=== PATIENT | female | born 1980 | race Caucasian/White ===

== ENCOUNTER 2025-05-25 05:37 | Inpatient (IN) | payer SELFPAY ==
[2025-05-25] VITALS (8 sets, daily range): BP systolic 143–173; BP diastolic 56–108; PULSE 77–92; RESP 18–20; TEMP 36.3–36.9; O2SAT 94–98; BMI 30.4
--- NOTE | 2025-05-25 05:48 | EDRME_ITS ---
Rapid Medical Screening Exam [facility] Arrival date/time: 05/25/25 05:37 45F with history of cholecystectomy and daily alcohol intake presents to ED with 1 day of epigastric pain and non-bloody diarrhea. Patient states this doesn't feel like withdrawal as she had a drink yesterday. Chief Complaint: Abdominal Pain Vital signs: Vital Signs Temperature 98.4 F 05/25/25 05:41 Pulse Rate 90 05/25/25 05:41 Respiratory Rate 20 05/25/25 05:41 Blood Pressure 173/108 H 05/25/25 05:41 Pulse Oximetry (%) 98 05/25/25 05:41 Oxygen Delivery Method Room Air 05/25/25 05:41
[2025-05-25] MEDS: SODIUM CHLORIDE 0.9% 1000 ML 1,000 ML 999 ML IV (06:15)
[2025-05-25] MEDS: ONDANSETRON INJ 2 MG/ML INJ 2 ML 4 MG IV (06:15)
[2025-05-25 06:34] LABS: Basophils # (Auto) 0.1 Thou/mm3 (0.0-0.2); Basophils % (Auto) 1 % (0-2.5); Eosinophils # (Auto) 0.2 Thou/mm3 (0.0-0.5); Eosinophils % (Auto) 2 % (0-10); Hematocrit 44.5 % (36.0-46.0); Hemoglobin 15.3 g/dL (12.0-16.0); Immature Granulocytes Auto 0.03 Thou/mm3 (0.00-0.00); Lymphocytes # (Auto) 1.7 Thou/mm3 (1.0-4.8); Lymphocytes % (Auto) 20 % (10-50); Mean Corpuscular HGB Conc 34.4 g/dl (31.0-37.0); Mean Corpuscular Hemoglobin 34.8 pg (25.0-35.0); Mean Corpuscular Volume 101 fL (80-100); Monocytes # (Auto) 0.6 Thou/mm3 (0.0-0.8); Monocytes % (Auto) 7 % (0-12); Neutrophils # (Auto) 5.9 Thou/mm3 (1.8-7.7); Neutrophils % (Auto) 70 % (37-80); Nucleated Red Blood Cell # 0.00 Thou/mm3 (0.00-0.00); Nucleated Red Blood Cell % 0 /100 WBC (0); Platelet Count 230 Thou/mm3 (140-440); RDW Standard Deviation 49.7 fL (36.4-46.3); Red Blood Count 4.40 Miln/mm3 (4.00-5.20); White Blood Count 8.4 Thou/mm3 (3.6-11.0)
--- NOTE | 2025-05-25 06:35 | PD.EDABDPN ---
ED Abdominal Pain RME/HPI General Chief Complaint: Abdominal Pain Stated complaint: ABD PAIN Time seen by provider: 05/25/25 05:54 Arrival date/time: 05/25/25 05:37 Limitations: no limitations RME / HPI RME / HPI narrative: 05/25/25 05:37 45F with history of cholecystectomy and daily alcohol intake presents to ED with 1 day of epigastric pain and non-bloody diarrhea. Patient states this doesn't feel like withdrawal as she had a drink yesterday. DR. WASHBURN MAIN ED EVALUATION: 45 year old female with past medical history significant for cholecystectomy and alcohol abuse presents to the Emergency Department with complaint of epigastric pain with radiation to the back since 1 AM. Associated symptoms include nausea and vomiting x10 episodes. Last menstrual period was May 08. No fevers or chills. No diarrhea. No other symptoms reported at this time. Related Data Home Medications ?Medication ?Instructions ?Recorded ?Confirmed gabapentin 300 mg capsule 300 mg PO BID 02/14/18 02/14/18 hydrocodone 7.5 mg-acetaminophen 1 tab PO BID 02/14/18 02/14/18 325 mg tablet (Donnellson) loratadine 10 mg capsule 10 mg PO QDAY 02/14/18 02/14/18 meloxicam 7.5 mg tablet 7.5 mg PO QDAY 02/14/18 02/14/18 methocarbamol 750 mg tablet 750 mg PO TID 02/14/18 02/14/18 zolpidem 10 mg tablet (Ambien) 10 mg PO HS PRN 02/14/18 02/14/18 Previous Rx's ?Medication ?Instructions ?Recorded promethazine-DM 6.25 mg-15 mg/5 mL 5 ml PO Q6H PRN cough #150 mL 12/09/18 oral syrup cyclobenzaprine 10 mg tablet 10 mg PO Q8H PRN muscle spasm #20 07/19/23 tabs Allergies Allergy/AdvReac Type Severity Reaction Status Date / Time clonazepam AdvReac Severe vomiting Verified 05/25/25 05:47 dizziness Review of Systems Review of Systems Systems Reviewed: All systems reviewed, normal except as documented Past Medical History Past Medical History MUSCULOSKELETAL: Positive Musculoskeletal Disorders, Arthritis and Degenerative Disk Disease Surgical History SURGICAL: Positive Section Social History SMOKING STATUS: Current every day smoker SUBSTANCE USE: does not use ALCOHOL: Current ED Exam General Limitations: Present no limitations General appearance: Present alert and in no apparent distress Head Head exam: Present atraumatic, normocephalic and normal inspection Eye Eye exam: Present normal appearance, PERRL and EOMI ENT ENT exam: Present normal exam, normal oropharynx and mucous membranes moist Neck Neck exam: Present normal inspection, full ROM and trachea midline Chest Chest inspection: Present normal inspection and symmetric chest wall rise Respiratory Respiratory exam: Present normal lung sounds bilaterally Cardiovascular Cardiovascular exam: Present regular rate, normal rhythm and normal heart sounds Abdominal Exam Abdominal exam: Present tenderness (epigastric tenderness) and normal bowel sounds; Absent rebound Extremities Exam Extremities exam: Present normal inspection and full ROM Back Exam Back exam: Present normal inspection and full ROM Neurological Exam Neurological exam: Present alert, oriented X3 and CN II-XII intact Psychiatric Psychiatric exam: Present normal affect and normal mood Skin Skin exam: Present warm, dry, intact and normal color Course Quality Measures none Orders Category Date Time Status CT Screening NOW Care 05/25/25 06:36 Active Insert IV NOW Care 05/25/25 05:[address] abdomen pelvis w con Stat Exams 05/25/25 06:36 Completed Alcohol, Blood Medical Stat Lab 05/25/25 06:20 Completed CBC Stat Lab 05/25/25 06:20 Completed CMP [Comprehensive Metabolic Panel] Stat Lab 05/25/25 06:20 Completed Drug Screen,Urine Stat Lab 05/25/25 11:32 Completed HCG Qualitative,Urine Stat Lab 05/25/25 11:32 Completed HCG,Qualitative Serum Stat Lab 05/25/25 06:20 Completed Lipase Stat Lab 05/25/25 06:20 Completed Triglycerides Stat Lab 05/25/25 13:06 Ordered Urinalysis, C/S if Indicated Stat Lab 05/25/25 11:32 Completed Morphine Inj Med 05/25/25 06:35 Active 4 mg IVP Q2H PRN Ondansetron Inj [Zofran Inj] Med 05/25/25 05:47 Discontinued 4 mg IV X1 ONE Pantoprazole Inj [Protonix Inj] Med 05/25/25 05:47 Discontinued 40 mg IVP X1 ONE Ringers Lactated 1000 ml [Lactated Ringers] 1,000 ml Med 05/25/25 06:37 Discontinued IV 1,000 mls/hr Sodium Chloride 0.9% 1000 ml [Ns] 1,000 ml Med 05/25/25 05:47 Discontinued IV 999 mls/hr Vital Signs Vital signs: Vital Signs Temperature 98.4 F 05/25/25 05:41 Pulse Rate 90 05/25/25 05:41 Respiratory Rate 20 05/25/25 05:41 Blood Pressure 173/108 H 05/25/25 05:41 Pulse Oximetry (%) 98 05/25/25 05:41 Oxygen Delivery Method Room Air 05/25/25 05:41 Abdominal Pain MDM MDM Narrative MDM Narrative:: I, Melina Arambula, nereida scribing for and in the presence of Dr. Bowling. Patient here for abdominal pain, epigastric. Likely pancreatitis, could also be gastritis or cholelithiasis. Plan to give pain medications, IV fluids, and order abdomen/pelvis CT scan. Will admit for acute pancreatitis and alcohol abuse Patient data External records reviewed:: [facility] previous records Clinical information provided by:: patient and spouse Social determinants that could affect healthcare access:: alcohol use Patient has the following chronic illnesses:: cholecystectomy and alcohol abuse How is presenting disease/condition affected by chronic disease/condition?: exacerbated by Evaluation data The following diagnostics were reviewed and interpreted by me:: lab results and radiology exam(s) Lab and/or radiology exams considered but not ordered:: none Interpretation Summary: Procedure(s): CT abdomen pelvis w con Accession Number(s): [id number] cc: Ami Bowling MD; Ubaldo Sweet MD; Daniel Salas MD~ Examination: CT abdomen with intravenous contrast CT pelvis with intravenous contrast 2-D coronal reconstructions 2-D sagittal reconstructions Date and time of exam:May 25, 2025 0909 hours Comparison March 02, 2013 INDICATIONS: Epigastric pain nausea vomiting beginning this morning. CTDI: vol (mGy) 12.7 DLP: (mGycm) 787 Technique: Multiple axial sections of the abdomen and pelvis have been obtained. 64 slice high-resolution scanner used. 3 mm axial sections have been obtained, post intravenous injection 60 cc [id number] 2-D sagittal, coronal reconstructions obtained. Low dose protocols were performed. One or more of the following dose reduction techniques were used; automated exposure control, adjustment of the mA and/or KV according to patient size, use of iterative reconstruction technique. Findings: Stable 4 mm pulmonary nodule right middle lobe No interval liver or splenic lesions Absent gallbladder Common hepatic duct 18 mm Suspicious for edema around the head of the pancreas No hydronephrosis No bowel obstruction Tiny fat-containing umbilical hernia Normal appendix No diverticulitis Anteverted uterus No bladder mass Moderate osteopenia IMPRESSION: Enlarged common hepatic duct Suspicious for pancreatitis Consider MRCP follow-up Dictated By: Daniel Salas MD Medications / Prescriptions Medications or Prescriptions considered but not ordered:: none Medication administrations:: Medication Administration History Morphine Sulfate (Morphine Sulf Inj 10 Mg/Ml Vial) 4 mg IVP Q2H PRN PRN Reason: AGITATION (MODERATE) Stop: 05/30/25 06:34 Last Admin: 05/25/25 11:51 Dose: 4 mg Documented By: Admin: 05/25/25 07:02 Dose: 4 mg Documented By: DONALD Discontinued Medications Sodium Chloride (Ns) 1,000 mls @ 999 mls/hr IV .Q1H1M ONE Stop: 05/25/25 06:47 Last Infusion: 05/25/25 07:43 Dose: Infused Documented By: Admin: 05/25/25 06:15 Dose: 999 mls/hr Documented By: DONALD Lactated Ringer's (Lactated Ringers) 1,000 mls @ 1,000 mls/hr IV .Q1H ONE Stop: 05/25/25 07:36 Last Infusion: 05/25/25 08:03 Dose: Infused Documented By: Admin: 05/25/25 07:03 Dose: 1,000 mls/hr Documented By: DONALD Ondansetron HCl (Ondansetron Inj 2 Mg/Ml Inj 2 Ml) 4 mg IV X1 ONE; Protocol Stop: 05/25/25 05:48 Last Admin: 05/25/25 06:15 Dose: 4 mg Documented By: DONALD Pantoprazole Sodium (Pantoprazole Inj 40 Mg Vial) 40 mg IVP X1 ONE Stop: 05/25/25 05:48 Last Admin: 05/25/25 06:15 Dose: 40 mg Documented By: DONALD see above Consultations Consultation(s) initiated? (list below): Yes Consultation #1 (Physician, Specialty, Details): Discussed test HPI, PMHx, lab, radiology results and/or management with resident working with the hospitalist. Will admit for further evaluation and management. Accepts patient for admission. Time: 13:08 Diagnosis Differential diagnosis abdominal pain: abdominal pain, gastroenteritis, pancreatitis and other (gastritis) Most likely diagnosis given after review of the tests above:: Pancreatitis and alcohol abuse Admission Indicated Admission indicated?: indicated Admission Request Was there a request for admission?: Yes Admission Attestation Admission request attestation: Discussed case with [] from Hospitalist service regarding admission. Discussed patients ED course, exam findings, labs, and radiology results. The Hospitalist [agrees,declines] to accept the patient for admission. Disposition Plan Disposition Plan: Admit Discharge Plan Prescriptions/Referrals Prescriptions/Med Rec: No Action meloxicam 7.5 mg tablet 7.5 mg PO QDAY methocarbamol 750 mg tablet 750 mg PO TID hydrocodone-acetaminophen [Donnellson] 7.5-325 mg tablet 1 tab PO BID gabapentin 300 mg capsule 300 mg PO BID zolpidem [Ambien] 10 mg tablet 10 mg PO HS PRN loratadine 10 mg capsule 10 mg PO QDAY promethazine-DM 6.25-15 mg/5 mL syrup 5 ml PO Q6H PRN (Reason: cough) Qty: 150 0RF cyclobenzaprine 10 mg tablet 10 mg PO Q8H PRN (Reason: muscle spasm) Qty: 20 0RF Referrals: Ubaldo Sweet MD [Primary Care Provider] - In 1 week Patient/Caregiver Discharge Instructions Print Language: Yemeni
[2025-05-25 06:57] LABS: Alanine Aminotransferase 35 U/L (10-49); Albumin, Serum 4.1 gm/dL (3.5-5.0); Albumin/Globulin Ratio 1.5 (1.2-2.2); Alcohol, Blood Medical 17.8 mg/dL (0-10.0); Alkaline Phosphatase 80 U/L (46-116); Anion Gap 8 (7-16); Aspartate Amino Transferase 39 U/L (0-34); BUN/Creatinine Ratio 7 Ratio (12-20); Bilirubin,Total 0.5 mg/dL (0.3-1.2); Blood Urea Nitrogen 5 mg/dL (9-23); Calcium 8.7 mg/dL (8.3-10.6); Calcium (Corrected) 8.7 mg/dL (8.5-10.1); Carbon Dioxide 26.4 mMol/L (20.0-31.0); Chloride 107 mMol/L (98-107); Creatinine (Component) 0.7 mg/dL (0.6-1.3); Globulin 2.7 gm/dL (2.3-3.5); Glucose 115 mg/dL (74-106); Lipase 272 U/L (12-53); Osmolality,Calculated 279 (275-295); Potassium 3.4 mMol/L (3.4-5.1); Sodium 141 mMol/L (136-145); Total Protein 6.8 gm/dL (5.7-8.2); eGFR > 60 See Note
[2025-05-25] MEDS: MORPHINE SULF INJ 10 MG/ML VIAL 4 MG IVP ×2 (07:02→11:51)
[2025-05-25] MEDS: RINGERS LACTATED 1000 ML 1,000 ML IV (07:03)
[2025-05-25 07:59] LABS: HCG,Qualitative Serum Negative
[2025-05-25 11:46] LABS: Collection Type, Urine Clean Catch
[2025-05-25 12:00] LABS: HCG Qualitative,Urine Negative
[2025-05-25 12:03] LABS: Bacteria,Urine Rare; Bilirubin,Urine Negative (Negative); Blood,Urine Negative (Negative); Clarity,Urine Clear (Clear/Hazy); Color,Urine Lt-Yellow (Lt Yel-Yel); Culture Indicated,Urine Not Indicated; Glucose, Urine Negative (Negative); Ketones,Urine Negative (Negative); Leukocyte Esterase,Urine Negative (Negative); Nitrite,Urine Negative (Negative); PH,Urine 8.0 (5.0-7.0); Protein,Urine Negative (Neg - Trace); RBC,Urine 6 /hpf (0-3); Specific Gravity,Urine 1.040 (1.001-1.035); Squamous Epithelial Cell,Urine 3 /hpf (0-5); Urobilinogen,Urine 6.0 mg/dL (0.0-1.0); WBC,Urine 1 /hpf (0-5)
[2025-05-25 12:24] LABS: Amphetamine/Methamp Scrn,U Negative (Negative); Barbiturate Screen,Urine Negative (Negative); Benzodiazepines Screen,Urine Negative (Negative); Benzoylecgonine Screen, Ur Negative (Negative); Fentanyl Screen,Urine Negative (Negative); Opiate Screen,Urine Positive (Negative); THC Screen,Urine Negative (Negative)
[2025-05-25 14:12] LABS: Triglycerides 263 mg/dL (30-150)
--- NOTE | 2025-05-25 15:05 | ESHP_ITS ---
<Statement entered by Rosaura Isabel MD - 05/25/25 17:30> I have reviewed the note and agree with the resident's assessment & plan with exceptions as below. I have personally reviewed labs, imaging, home meds/prior records, examined the patient, formulated and discussed management plan with the IM team. #Pancreatitis #Intractable nausea and vomiting #Alcohol use disorder Triglycerides 270 Patient does not seem to be withdrawing at this time CT imaging showed suspicion for pancreatic edema Lipase ~260 Pancreatitis likely related to patient's drinking history There is suspicion that patient may have esophageal varices, however patient has not coughed up or throwing up blood Plan: ? IV fluids, LR at 150 cc/hour ? N.p.o. ? Antiemetics ? Pain control with IV morphine ? Holding on adding CIWA at this time #Hypertriglyceridemia Triglycerides 270 Plan: ? Cardiac stratification ? Outpatient management Rosaura Isabel, PGY-2 Internal Medicine Documentation for date of: 05/25/25 HPI History of Present Illness History of present illness: Angeles Ojeda is a 45-year-old female with past medical history of alcohol abuse, cholecystectomy, osteoarthritis of hips knees and wrists, degenerative disc disease who presented to the ED on 05/25/2025 with worsening epigastric pain since midnight. Pain was described as sharp, rated 3/10, and radiating to the back. Patient admits to nausea, and states has vomited 10 times. Denies hematemesis, hematochezia, diarrhea, fevers, chest pain. patient admits to similar symptoms for 2 days during past week, but even more episodes during the previous months. After antiemetics were given in the ED, patient said that she was having dry heaves. Patient admits to loss of appetite and states that over last 12 months has lost 56 pounds. Allergies: Clonazepam PMH: Alcohol abuse, osteoarthritis, degenerative disc disease PSH: cholecystectomy surgery to remove bunions in both feet FH: Father from liver cancer. Mother hypoglycemia. Diabetes prominent in mother's side of her family SH: Patient smokes daily, currently 1 PPD. Patient states has a smoking since 15. Drinks a pint of whiskey daily. 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 Reason for admission: Patient comes in with epigastric pain radiating to the back, lipase elevated 272, and radiology suspicious for inflammatory changes around pancreas. Patient is admitted for further workup and in-hospital treatment of the most likely diagnosis acute pancreatitis. Exam Vital Signs Temp Pulse Resp BP Pulse Ox O2 Del Method 97.7 F 80 18 145/83 H 98 Room Air 05/25/25 14:24 05/25/25 14:24 05/25/25 14:24 05/25/25 14:24 05/25/25 14:24 05/25/25 14:24 Narrative Exam General: Alert and oriented x3, No apparent distress. Skin: Intact, Warm, no rashes. HEENT: Normocephalic, Atraumatic. Normal neck range of motion, Supple. Trachea midline. Respiratory: Lungs are clear to auscultation, Breath sounds are equal bilaterally with equal chest expansion. Cardiovascular: RRR, normal S1, S2, No murmurs. Distal pulses 2+ Musculoskeletal: No swelling, moving all 4 extremities with FROM Abdomen: No erythema, bruising, or lesions. A transverse scarring from C- section surgery in hypogastric area. Abdomen is soft, exquisitely tender to palpation. Deep ventilation exacerbates the abdominal pain. Bowel sounds are diminished. Neurologic: Alert, Oriented, No focal deficits. Moving all 4 extremities spontaneously Psych: Thoughts linear and responses appropriate. Results: Labs 05/26/25 05:10 05/26/25 05:10 Labs: Short CBC 05/25/25 Range/Units 06:20 WBC 8.4 (3.6-11.0) Thou/mm3 Hgb 15.3 (12.0-16.0) g/dL Hct 44.5 (36.0-46.0) % Plt Count 230 (140-440) Thou/mm3 BMP 05/25/25 06:20 Sodium 141 Potassium 3.4 Chloride 107 Carbon Dioxide 26.4 BUN 5 L Creatinine 0.7 Glucose 115 H Calcium 8.7 Liver Function 05/25/25 Range/Units 06:20 Total Bilirubin 0.5 (0.3-1.2) mg/dL AST 39 H (0-34) U/L ALT 35 (10-49) U/L Alkaline Phosphatase 80 (46-116) U/L Albumin 4.1 (3.5-5.0) gm/dL Urine 05/25/25 Range/Units 11:32 Urine Color Lt-Yellow (Lt Yel-Yel) Urine Clarity Clear (Clear/Hazy) Urine pH 8.0 H (5.0-7.0) Ur Specific [place] 1.040 H (1.001-1.035) Urine Protein Negative (Neg - Trace) Urine Glucose (UA) Negative (Negative) Quality Measures Quality Measures none Medications Home Medications and Allergies Home Medications ?Medication ?Instructions ?Recorded ?Confirmed ?Type ibuprofen 800 mg tablet (IBU) 800 mg PO DAILY PRN pain 05/25/25 05/25/25 History omeprazole 20 mg capsule,delayed 20 mg PO QDAY PRN abd ominal pain 05/25/25 05/25/25 History release Allergies Allergy/AdvReac Type Severity Reaction Status Date / Time clonazepam AdvReac Severe vomiting Verified 05/25/25 05:47 dizziness Visit Medications Morphine Sulfate (Morphine Sulf Inj 10 Mg/Ml Vial) 4 mg IVP Q2H PRN PRN Reason: AGITATION (MODERATE) Stop: 05/30/25 06:34 Last Admin: 05/25/25 11:51 Dose: 4 mg Discontinued Medications Sodium Chloride (Ns) 1,000 mls @ 999 mls/hr IV .Q1H1M ONE Stop: 05/25/25 06:47 Last Infusion: 05/25/25 07:43 Dose: Infused Lactated Ringer's (Lactated Ringers) 1,000 mls @ 1,000 mls/hr IV .Q1H ONE Stop: 05/25/25 07:36 Last Infusion: 05/25/25 08:03 Dose: Infused Ondansetron HCl (Ondansetron Inj 2 Mg/Ml Inj 2 Ml) 4 mg IV X1 ONE; Protocol Stop: 05/25/25 05:48 Last Admin: 05/25/25 06:15 Dose: 4 mg Pantoprazole Sodium (Pantoprazole Inj 40 Mg Vial) 40 mg IVP X1 ONE Stop: 05/25/25 05:48 Last Admin: 05/25/25 06:15 Dose: 40 mg Assessment & Plan Plan In summary, Shekhar Ojeda is a 45-year-old female with past medical history of alcohol abuse disorder, osteoarthritis, degenerative disc disease, and cholecystectomy who presented to the ED with signs and symptoms concerning for acute pancreatitis. #Acute alcohol-induced pancreatitis Ddx gastritis, duodenitis, GI perforation Lipase 272, triglycerides 263 CTAP: Enlarged common hepatic duct, suspicion for pancreatitis Plan: ?Follow-up MRCP ? LR 150 mL/h ? N.p.o. (nausea); antiemetics on board ? Analgesics IV morphine 4 mg as needed injection ? CBC, CMP daily AM draw ?Trend lipase ?TSH, A1c #Alcohol withdrawal (possibility, to watch out for) Patient drinks a pint of 40% alcohol daily Plan: ?Obtain daily labs for magnesium and phosphate, replete as necessary ? Vitamin supplementation (thiamine, pyridoxine) ? Consider CIWA protocol Health maintenance: Diet: N.p.o. GI prophylaxis: Protonix CODE STATUS routine Case was discussed with attending physician, Dr. Guaman, and senior resident Nael. Gee Foley, DO PGY I Attending Provider Attestation/Addendum I have examined the patient, reviewed labs and imaging findings, discussed the case with the resident(s), and reviewed entered orders. I agree with the plan of care as outlined in this note, with these additional summaries/recommendations: After examination of the patient and review of the clinical data, I feel that this patient needs admission to the hospital for further treatment and evaluation. Patient is a 45-year-old female with relatively no past medical history except for insomnia and some alcohol use who presents to [facility] emergency department on 05/25/2025 with chief complaint of abdominal pain. In the emergency room lipase found to be [address] abdomen and pelvis showed likely edema around pancreatic head with minimal enlarged common hepatic duct. Patient meets 3 out of 3 diagnostic criteria for acute pancreatitis. Etiology likely secondary to alcohol. No evidence of gallstones at this time. N.p.o., IV fluids, pain management, and monitor for fever. Patient does endorse daily alcohol use although has never had withdrawal symptoms. CIWA as needed. Patient updated on the plan and in agreement. All questions answered to satisfaction. Please see residents note for additional details and management. Dr. Rowena MD
[2025-05-25] MEDS: ONDANSETRON INJ 2 MG/ML INJ 2 ML 4 MG IVP (15:59)
[2025-05-25] MEDS: RINGERS LACTATED 1000 ML 1,000 ML 150 ML IV (16:00)
[2025-05-25] MEDS: MORPHINE SULF INJ 10 MG/ML VIAL 2 MG IVP ×2 (17:11→22:10)
--- NOTE | 2025-05-25 17:48 | EKG_ITS ---
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
--- NOTE | 2025-05-25 17:48 | XR_ITS ---
Examination: AP chest single view Technique one AP portable upright chest single view Date and time: May 25, 2025 1808 hours INDICATIONS: Chest pain shortness of breath today. FINDINGS: Normal heart size. The lungs are clear. The osseous structures are intact. IMPRESSION: No active disease.
[2025-05-25] MEDS: MORPHINE SULF INJ 10 MG/ML VIAL IVP (18:01)
--- NOTE | 2025-05-25 18:13 | ECHO_ITS ---
Transthoracic Echo Report Ht (in): 69 Wt (lb): 206 Exam Location: Echo Lab Status: Inpatient Chain Builder: Nereyda Fournier Indications: Procedure Performed: BP: 163 / 56 HR: 80 Technical Quality: Technically difficult study MEASUREMENTS (Male / Female) Normal Values 2D ECHO LV Diastolic Diameter PLAX 4.4 cm 4.2 - 5.9 / 3.9 - 5.3 cm LV Systolic Diameter PLAX 3.0 cm IVS Diastolic Thickness 1.1 cm 0.6 - 1.0 / 0.6 - 0.9 cm LVPW Diastolic Thickness 1.2 cm 0.6 - 1.0 / 0.6 - 0.9 cm LV Relative Wall Thickness 0.5 LVOT Diameter 2.0 cm Aortic Root Diameter 3.1 cm LA Systolic Diameter LX 3.5 cm 3.0 - 4.0 / 2.7 - 3.8 cm LV Ejection Fraction MOD BP 55.8 % >= 55 % LV Cardiac Index MOD BP 1738.4 cm?/min?m? LV Ejection Fraction MOD 4C 54.5 % LV Cardiac Index MOD 4C 1530.8 cm?/min?m? LV Ejection Fraction 4C AL 55.7 % LV Cardiac Index 4C AL 1609.5 cm?/min?m? LV Ejection Fraction MOD 2C 57.5 % LV Cardiac Index MOD 2C 1964.5 cm?/min?m? LV Ejection Fraction 2C AL 57.4 % LV Cardiac Index 2C AL 2055.4 cm?/min?m? LA Volume Index 20.8 cm?/m? 16 - 28 cm?/m? M-MODE Aortic Root Diameter MM 2.5 cm LA Systolic Diameter MM 4.2 cm LA Ao Ratio MM 1.7 AV Cusp Separation MM 2.3 cm DOPPLER AV Peak Velocity 139.0 cm/s AV Peak Gradient 7.7 mmHg AV Mean Gradient 3.0 mmHg AV Velocity Time Integral 29.4 cm LVOT Peak Velocity 101.0 cm/s LVOT Peak Gradient 4.1 mmHg LVOT Velocity Time Integral 25.6 cm LVOT Cardiac Index 2981.0 cm?/min?m? AV Area Cont Eq vti 2.7 cm? AV Area Cont Eq pk 2.3 cm? MV Area PHT 4.9 cm? MR Peak Velocity 406.0 cm/s MR Peak Gradient 65.9 mmHg Mitral E Point Velocity 89.7 cm/s Mitral A Point Velocity 90.2 cm/s Mitral E to A Ratio 1.0 LV E' Lateral Velocity 12.9 cm/s Mitral E to LV E' Lateral Ratio 7.0 LV E' Septal Velocity 10.0 cm/s Mitral E to LV E' Septal Ratio 9.0 TR Peak Velocity 278.5 cm/s TR Peak Gradient 31.0 mmHg PV Peak Velocity 106.0 cm/s PV Peak Gradient 4.5 mmHg FINDINGS Left Ventricle Normal left ventricular size and systolic function with no obvious regional wall motion abnormalities. Mild LVH. Normal left ventricular diastolic filling pattern for age. The ejection fraction is visually estimated at 55- 60%. Right Ventricle The right ventricular size is mildy increased with normal systolic function. The estimated right ventricular systolic pressure, 40 mmHg. RAP 5. Left Atrium The left atrium is normal by two-dimensional, color flow and Doppler imaging with no structural abnormalities, no thrombus formation present. Right Atrium The right atrium is normal by two-dimensional imaging, color flow and Doppler imaging with no structural abnormalities, no thrombus formation present. Atrial Septum The interatrial septum appears normal with no evidence of a shunt. Aorta The aorta is normal by two-dimensional, color flow and Doppler interrogation. Mitral Valve The mitral valve is normal by two-dimensional, color flow and Doppler interrogation. Trace mitral regurgitation. Aortic Valve The aortic valve is trileaflet and normal by two-dimensional, color flow and Doppler interrogation. There is no significant aortic valve regurgitation. Tricuspid Valve The tricuspid valve is normal by two-dimensional, color flow and Doppler interrogation. There is mild tricuspid valve regurgitation. Pulmonic Valve The pulmonic valve is not well visualized. There is no significant pulmonic valve regurgitation. Vessels The pulmonary artery appears normal. The inferior vena cava pulmonary and hepatic veins appear normal. Pericardium The pericardium is normal by two-dimensional imaging. There is no significant pericardial effusion. CONCLUSIONS Indication: Chest pain Normal LV size and function. Mild LVH. Estimated EF of 55 to 60%. Normal diastolic function. Normal RV size and function. Mildly elevated RVSP 35 to 40 mmHg. Trace MR. Mild TR. no pericardial effusion Evans Casarez (Electronically Signed) Final Date: 26 May 2025 09:00
[2025-05-25] MEDS: POTASSIUM CHL 10 mEq IVPB 10 MEQ/100 ML BAG 100 MEQ IV ×4 (18:14→21:43)
[2025-05-25 18:47] LABS: Alanine Aminotransferase 158 U/L (10-49); Albumin, Serum 4.1 gm/dL (3.5-5.0); Albumin/Globulin Ratio 1.5 (1.2-2.2); Alkaline Phosphatase 143 U/L (46-116); Anion Gap 8 (7-16); Aspartate Amino Transferase 392 U/L (0-34); BUN/Creatinine Ratio 8 Ratio (12-20); Bilirubin,Total 1.4 mg/dL (0.3-1.2); Blood Urea Nitrogen < 5 mg/dL (9-23); Calcium 8.7 mg/dL (8.3-10.6); Calcium (Corrected) 8.7 mg/dL (8.5-10.1); Carbon Dioxide 27.5 mMol/L (20.0-31.0); Chloride 105 mMol/L (98-107); Creatinine (Component) 0.6 mg/dL (0.6-1.3); Estimated Creatinine Clearance 144.3 mL/min (>60); Globulin 2.7 gm/dL (2.3-3.5); Glucose 103 mg/dL (74-106); Magnesium 1.4 mg/dL (1.6-2.6); Osmolality,Calculated 276 (275-295); Potassium 4.2 mMol/L (3.4-5.1); Sodium 140 mMol/L (136-145); Total Protein 6.8 gm/dL (5.7-8.2); Troponin I < 0.020 ng/mL (0.0-0.045); eGFR > 60 See Note
--- NOTE | 2025-05-25 19:35 | EVENTNT_ITS ---
Documentation for date of: 05/25/25 Event Note Event Note: [id number]: Chest Pain Rapid response called for chest pain. Patient reported right sided chest pain that was non-radiating, 7/10, made worse with deep inspiration, and reproducible with deep palpation. Patient able to protect airway, respiratory rate normal, and circulation 3+. Vitals during rapid: BP 165/96, HR 85, RR 18, spO2 96 % RA Action taken: EKG, Troponin, BMP, CBC, Cxr. Medication given Morphine 2 mg IV Q4HR PRN and Morphine mg IV X 1 - The patient's plan was discussed with attending Dr. Jerzy Chisholm MD PGY2 Internal Medicine
[2025-05-25 19:38] LABS: Basophils # (Auto) 0.0 Thou/mm3 (0.0-0.2); Basophils % (Auto) 0 % (0-2.5); Eosinophils # (Auto) 0.1 Thou/mm3 (0.0-0.5); Eosinophils % (Auto) 1 % (0-10); Hematocrit 45.8 % (36.0-46.0); Hemoglobin 15.6 g/dL (12.0-16.0); Immature Granulocytes Auto 0.02 Thou/mm3 (0.00-0.00); Lymphocytes # (Auto) 1.0 Thou/mm3 (1.0-4.8); Lymphocytes % (Auto) 10 % (10-50); Mean Corpuscular HGB Conc 34.1 g/dl (31.0-37.0); Mean Corpuscular Hemoglobin 34.9 pg (25.0-35.0); Mean Corpuscular Volume 103 fL (80-100); Monocytes # (Auto) 0.5 Thou/mm3 (0.0-0.8); Monocytes % (Auto) 6 % (0-12); Neutrophils # (Auto) 7.8 Thou/mm3 (1.8-7.7); Neutrophils % (Auto) 83 % (37-80); Nucleated Red Blood Cell # 0.00 Thou/mm3 (0.00-0.00); Nucleated Red Blood Cell % 0 /100 WBC (0); Platelet Count 235 Thou/mm3 (140-440); RDW Standard Deviation 51.5 fL (36.4-46.3); Red Blood Count 4.47 Miln/mm3 (4.00-5.20); White Blood Count 9.5 Thou/mm3 (3.6-11.0)
[2025-05-25] MEDS: Magnesium Sulfate 4 GM Ivpb 4 GM/50 ML BAG IV (23:03)
[2025-05-25] MEDS: RINGERS LACTATED 1000 ML 1,000 ML 125 ML IV (23:03)
[2025-05-26] VITALS (9 sets, daily range): BP systolic 126–178; BP diastolic 94–109; PULSE 76–119; RESP 16–20; TEMP 36.1–36.8; O2SAT 79–98
[2025-05-26] MEDS: MORPHINE SULF INJ 10 MG/ML VIAL 2 MG IVP ×4 (02:48→17:37)
[2025-05-26] MEDS: ONDANSETRON INJ 2 MG/ML INJ 2 ML 4 MG IVP ×2 (05:15→11:25)
[2025-05-26] MEDS: LORazepam 2 MG/ML VIAL 1 MG IV (05:35)
[2025-05-26 06:29] LABS: Basophils # (Auto) 0.0 Thou/mm3 (0.0-0.2); Basophils % (Auto) 0 % (0-2.5); Eosinophils # (Auto) 0.0 Thou/mm3 (0.0-0.5); Eosinophils % (Auto) 0 % (0-10); Hematocrit 45.9 % (36.0-46.0); Hemoglobin 16.4 g/dL (12.0-16.0); Immature Granulocytes Auto 0.02 Thou/mm3 (0.00-0.00); Lymphocytes # (Auto) 1.0 Thou/mm3 (1.0-4.8); Lymphocytes % (Auto) 9 % (10-50); Mean Corpuscular HGB Conc 35.7 g/dl (31.0-37.0); Mean Corpuscular Hemoglobin 34.8 pg (25.0-35.0); Mean Corpuscular Volume 98 fL (80-100); Monocytes # (Auto) 0.6 Thou/mm3 (0.0-0.8); Monocytes % (Auto) 6 % (0-12); Neutrophils # (Auto) 8.5 Thou/mm3 (1.8-7.7); Neutrophils % (Auto) 84 % (37-80); Nucleated Red Blood Cell # 0.00 Thou/mm3 (0.00-0.00); Nucleated Red Blood Cell % 0 /100 WBC (0); Platelet Count 161 Thou/mm3 (140-440); RDW Standard Deviation 48.9 fL (36.4-46.3); Red Blood Count 4.71 Miln/mm3 (4.00-5.20); White Blood Count 10.1 Thou/mm3 (3.6-11.0)
[2025-05-26 07:07] LABS: Alanine Aminotransferase 129 U/L (10-49); Albumin, Serum 3.9 gm/dL (3.5-5.0); Albumin/Globulin Ratio 1.4 (1.2-2.2); Alkaline Phosphatase 137 U/L (46-116); Anion Gap 9 (7-16); Aspartate Amino Transferase 176 U/L (0-34); BUN/Creatinine Ratio 10 Ratio (12-20); Bilirubin,Total 1.4 mg/dL (0.3-1.2); Blood Urea Nitrogen < 5 mg/dL (9-23); Calcium 8.2 mg/dL (8.3-10.6); Calcium (Corrected) 8.3 mg/dL (8.5-10.1); Carbon Dioxide 22.0 mMol/L (20.0-31.0); Cardiac Risk Estimate 2.3 RATIO (3.7-5.6); Chloride 104 mMol/L (98-107); Cholesterol 153 mg/dL (132-200); Creatinine (Component) 0.5 mg/dL (0.6-1.3); Estimated Creatinine Clearance 173.2 mL/min (>60); Globulin 2.7 gm/dL (2.3-3.5); Glucose 108 mg/dL (74-106); Glucose Estimated Average 94 mg/dL (80-131); HDL Cholesterol 66 mg/dL (40-60); Hemoglobin A1C 4.9 % Hgb (4.8-6.0); LDL Cholesterol,Calculated 74 mg/dL (0-130); Magnesium 2.4 mg/dL (1.6-2.6); Osmolality,Calculated 268 (275-295); Phosphorous 2.0 mg/dL (2.4-5.1); Potassium 3.6 mMol/L (3.4-5.1); Sodium 135 mMol/L (136-145); Thyroid Stimulating Hormone 0.72 uIU/mL (0.55-4.78); Total Protein 6.6 gm/dL (5.7-8.2); Triglycerides 64 mg/dL (30-150); eGFR > 60 See Note
[2025-05-26] MEDS: RINGERS LACTATED 1000 ML 1,000 ML 75 ML IV (11:21)
[2025-05-26] MEDS: RINGERS LACTATED 1000 ML 1,000 ML 150 ML IV ×2 (15:14→19:58)
[2025-05-26] MEDS: POT PHOS 15 mMol in NS 250 ML 15 MMOL/250 ML BAG 62.5 MMOL IV (15:37)
--- NOTE | 2025-05-26 15:43 | PC.SS ---
Per rounding, pt is unable to tolerate food. Pt is being seen for Pancreatitis, is now on NPO. No d/c date at this time.
--- NOTE | 2025-05-26 17:00 | ESPR_ITS ---
Documentation for date of: 05/26/25 Subjective Subjective Interval history: Patient had nausea, and vomited earlier in the morning. Abdominal pain is improving, 6 out of 10 today. The chest pain is still present and could not be differentiated from abdominal pain. It gets worse with movement. Patient has not had a bowel movement or passed gas. Denies dysuria, urinary frequency, or urgency. Patient was experiencing chest pain and SOB last night and rapid response was called. His EKG, troponins, and morning echocardiogram were unremarkable. Exam Vital Signs Temp Pulse Resp BP Pulse Ox O2 Del Method 97.1 F 106 H 18 143/97 H 94 L Room Air 05/26/25 16:00 05/26/25 16:00 05/26/25 16:00 05/26/25 16:00 05/26/25 16:05/26/25 16:00 Narrative Exam General: Alert and oriented x3, No apparent distress. Skin: Intact, Warm, no rashes. HEENT: Normocephalic, Atraumatic. Normal neck range of motion, Supple. Trachea midline. Respiratory: Lungs are clear to auscultation, Breath sounds are equal bilaterally with equal chest expansion. Cardiovascular: RRR, normal S1, S2, No murmurs. Distal pulses 2+ Musculoskeletal: No swelling, moving all 4 extremities with FROM Abdomen: No erythema, bruising, or lesions. A transverse scarring from C- section surgery in hypogastric area. Abdomen is soft, exquisitely tender to palpation. Deep ventilation exacerbates the abdominal pain. Bowel sounds are diminished. Neurologic: Alert, Oriented, No focal deficits. Moving all 4 extremities spontaneously Psych: Thoughts linear and responses appropriate. Objective Labs 05/27/25 05:05 05/27/25 05:05 Labs: Laboratory Results - last 24 hr 05/25/25 05/25/25 05/26/25 17:54 18:09 05:10 WBC 9.5 10.1 RBC 4.47 4.71 Hgb 15.6 16.4 H Hct 45.8 45.9 MCV 103 H 98 MCH 34.9 34.8 MCHC 34.1 35.7 RDW Std Deviation 51.5 H 48.9 H Plt Count 235 161 D Neut % (Auto) 83 H 84 H Lymph % (Auto) 10 9 L [place] % (Auto) 6 6 Eos % (Auto) 1 0 Baso % (Auto) 0 0 Neut # (Auto) 7.8 H 8.5 H Lymph # (Auto) 1.0 1.0 [place] # (Auto) 0.5 0.6 Eos # (Auto) 0.1 0.0 Baso # (Auto) 0.0 0.0 Immature Gran # (Auto) 0.02 H 0.02 H Absolute Nucleated RBC 0.00 0.00 Immature Gran % 0 0 Nucleated RBC % 0 0 Sodium 140 135 L Potassium 4.2 D 3.6 D Chloride 105 104 Carbon Dioxide 27.5 22.0 Anion Gap 8 9 BUN < 5 L < 5 L Creatinine 0.6 0.5 L Estim Creat Clear Calc 144.3 173.2 eGFR > 60 > 60 BUN/Creatinine Ratio 8 L 10 L Glucose [address] Glu mg/dL 94 Hemoglobin A1c 4.9 Calculated Osmolality 276 268 L Calcium 8.7 8.2 L Corrected Calcium 8.7 8.3 L Phosphorus 2.0 L Magnesium 1.4 L 2.4 Total Bilirubin 1.4 H D 1.4 H AST 392 H 176 H ALT 158 H 129 H Alkaline Phosphatase 143 H D 137 H Troponin I < 0.020 Total Protein 6.8 6.6 Albumin 4.1 3.9 Globulin 2.7 2.7 Albumin/Globulin Ratio 1.5 1.4 Triglycerides 64 Cholesterol 153 LDL Cholesterol, Calc 74 HDL Cholesterol 66 H Cholesterol/HDL Ratio 2.3 L TSH 0.72 Quality Measures Quality Measures none Assessment & Plan Assessment Current Active Medications: Generic Name Dose Route Start Last Admin Trade Name Mikyq PRN Reason Stop Dose Admin Folic Acid 1 mg 05/26/25 09:00 05/26/25 09:00 Folic Acid 1 Mg Tablet PO 05/31/25 08:59 Not Given BID LATRICE Lactated Ringer's 1,000 mls @ 150 mls/hr 05/26/25 13:33 05/26/25 15:14 Lactated Ringers IV 06/25/25 13:32 150 mls/hr .[id number] LATRICE Administration Potassium Phosphate 15 mmol in 250 mls @ 62.5 mls/hr 05/26/25 13:45 05/26/25 15:37 Pot Phos 15 Mmol In Ns 250 Ml IV 05/26/25 17:44 62.5 mls/hr X1 ONE Administration Calcium Chloride 10 ml/ Sodium 110 mls @ 110 mls/hr 05/26/25 17:45 Chloride IV 05/26/25 18:44 .Q1H ONE Lorazepam 0.5 mg 05/26/25 07:57 Lorazepam 2 Mg/Ml Vial IV 05/31/25 07:56 Q2HR PRN CIWA SCORE 8-13 Lorazepam 1 mg 05/26/25 07:57 Lorazepam 2 Mg/Ml Vial IV 05/31/25 07:56 Q2HR PRN CIWA SCORE 14-19 Lorazepam 2 mg 05/26/25 07:57 Lorazepam 2 Mg/Ml Vial IV 05/31/25 07:56 Q2HR PRN CIWA SCORE 20-25 Lorazepam 2 mg 05/26/25 07:57 Lorazepam 2 Mg/Ml Vial IVP X1 PRN Breakthrough Agitation Morphine Sulfate 2 mg 05/25/25 17:50 05/26/25 12:39 Morphine Sulf Inj 10 Mg/Ml Vial IVP 05/30/25 17:49 2 mg Q4HR PRN Administration PAIN SCALE 7-10 (Severe Ondansetron HCl 4 mg 05/25/25 15:30 05/26/25 11:25 Ondansetron Inj 2 Mg/Ml Inj 2 Ml IVP 06/24/25 15:29 4 mg Q6HR PRN Administration NAUSEA OR VOMITING Protocol Pantoprazole Sodium 40 mg 05/26/25 09:00 05/26/25 08:11 Pantoprazole Inj 40 Mg Vial IVP 06/25/25 08:59 40 mg QDAY LATRICE Administration Thiamine HCl 100 mg 05/26/25 09:00 05/26/25 09:00 Thiamine 100 Mg Tablet PO 05/31/25 08:59 Not Given BID LATRICE Plan Plan In summary, Shekhar Ojeda is a 45-year-old female with past medical history of alcohol abuse disorder, osteoarthritis, degenerative disc disease, and cholecystectomy who presented to the ED with signs and symptoms concerning for acute pancreatitis. #Acute alcohol-induced pancreatitis Ddx gallstone pancreatitis, hypertriglyceridemia, scorpion bite. Lipase 272, triglycerides 263 CTAP: Enlarged common hepatic duct, suspicion for pancreatitis HgA1c 4.9; TSH .72 Plan: ?Follow-up MRCP ? LR 75 mL/h ? clear liquid diet (advanced); antiemetics on board ? Analgesics IV morphine 4 mg as needed injection ? CBC, CMP daily AM draw ?Trend lipase #Alcohol withdrawal (possibility, to watch out for) Patient drinks a pint of 40% alcohol daily Plan: ?Obtain daily labs for magnesium and phosphate, replete as necessary ? Vitamin supplementation (thiamine, pyridoxine) ? Consider CIWA protocol #Transaminitis On admission AST 392, ALT 158, alkaline phosphatase 143 AST: ALT >2 indicative of alcohol induced liver injury LFT's downtrending Plan: trend LFT Health maintenance: Diet: N.p.o. GI prophylaxis: Protonix CODE STATUS routine Case was discussed with attending physician, Dr. Guaman, and senior resident Chalo. Gee Foley, DO PGY I Attending Provider Attestation/Addendum I have examined the patient, reviewed labs and imaging findings, discussed the case with the resident(s), and reviewed entered orders. I agree with the plan of care as outlined in this note, with these additional summaries/recommendations: Patient seen at bedside. No acute overnight events. Patient reports some improvement in her abdominal pain. Patient was started on clear liquid diet but did not tolerate and patient made n.p.o. again. Continue pain management and IV fluids for acute pancreatitis. Continue CIWA for alcohol withdrawal although mild at this time. Patient intermittently endorsing chest pain at times although appears noncardiac in origin. Patient updated on plan and in agreement. All questions answered to satisfaction. Please see residents note for additional details and management. Dr. Rowena MD
[2025-05-26] MEDS: Calcium Chloride 10% Inj 10 ML in SODIUM CHLORIDE 0.9% 100 ML 110 ML IV (20:00)
[2025-05-26] MEDS: FOLIC ACID 1 MG TABLET PO (20:25)
[2025-05-26] MEDS: THIAMINE 100 MG TABLET PO (20:25)
[2025-05-26] MEDS: LORazepam 2 MG/ML VIAL 0.5 MG IV (20:26)
[2025-05-27] VITALS (9 sets, daily range): BP systolic 136–145; BP diastolic 66–97; PULSE 80–122; RESP 16–20; TEMP 36.1–36.7; O2SAT 93–97
[2025-05-27] MEDS: MORPHINE SULF INJ 10 MG/ML VIAL 2 MG IVP ×5 (00:46→20:45)
[2025-05-27] MEDS: RINGERS LACTATED 1000 ML 1,000 ML 150 ML IV (02:01)
[2025-05-27 06:31] LABS: Basophils # (Auto) 0.0 Thou/mm3 (0.0-0.2); Basophils % (Auto) 0 % (0-2.5); Eosinophils # (Auto) 0.1 Thou/mm3 (0.0-0.5); Eosinophils % (Auto) 1 % (0-10); Hematocrit 43.4 % (36.0-46.0); Hemoglobin 15.0 g/dL (12.0-16.0); Immature Granulocytes Auto 0.04 Thou/mm3 (0.00-0.00); Lymphocytes # (Auto) 1.2 Thou/mm3 (1.0-4.8); Lymphocytes % (Auto) 11 % (10-50); Mean Corpuscular HGB Conc 34.6 g/dl (31.0-37.0); Mean Corpuscular Hemoglobin 34.4 pg (25.0-35.0); Mean Corpuscular Volume 100 fL (80-100); Monocytes # (Auto) 0.8 Thou/mm3 (0.0-0.8); Monocytes % (Auto) 8 % (0-12); Neutrophils # (Auto) 8.5 Thou/mm3 (1.8-7.7); Neutrophils % (Auto) 80 % (37-80); Nucleated Red Blood Cell # 0.00 Thou/mm3 (0.00-0.00); Nucleated Red Blood Cell % 0 /100 WBC (0); Platelet Count 166 Thou/mm3 (140-440); RDW Standard Deviation 51.4 fL (36.4-46.3); Red Blood Count 4.36 Miln/mm3 (4.00-5.20); White Blood Count 10.6 Thou/mm3 (3.6-11.0)
[2025-05-27 06:54] LABS: Alanine Aminotransferase 67 U/L (10-49); Albumin, Serum 3.4 gm/dL (3.5-5.0); Albumin/Globulin Ratio 1.4 (1.2-2.2); Alkaline Phosphatase 113 U/L (46-116); Anion Gap 9 (7-16); Aspartate Amino Transferase 47 U/L (0-34); BUN/Creatinine Ratio 8 Ratio (12-20); Bilirubin,Total 1.3 mg/dL (0.3-1.2); Blood Urea Nitrogen < 5 mg/dL (9-23); Calcium 8.4 mg/dL (8.3-10.6); Calcium (Corrected) 8.9 mg/dL (8.5-10.1); Carbon Dioxide 25.0 mMol/L (20.0-31.0); Chloride 103 mMol/L (98-107); Creatinine (Component) 0.6 mg/dL (0.6-1.3); Estimated Creatinine Clearance 144.3 mL/min (>60); Globulin 2.5 gm/dL (2.3-3.5); Glucose 94 mg/dL (74-106); Magnesium 2.0 mg/dL (1.6-2.6); Osmolality,Calculated 271 (275-295); Phosphorous 1.6 mg/dL (2.4-5.1); Potassium 4.4 mMol/L (3.4-5.1); Sodium 137 mMol/L (136-145); Total Protein 5.9 gm/dL (5.7-8.2); eGFR > 60 See Note
[2025-05-27] MEDS: THIAMINE 100 MG TABLET PO ×2 (08:27→21:36)
[2025-05-27] MEDS: FOLIC ACID 1 MG TABLET PO ×2 (08:27→21:36)
[2025-05-27] MEDS: SOD PHOS ADDITIVE 22.5 MMOL in SODIUM CHLORIDE 0.9% 500 ML 500 ML 82.778 MMOL IV (08:27)
[2025-05-27] MEDS: RINGERS LACTATED 1000 ML 1,000 ML 75 ML IV ×2 (08:28→23:09)
--- NOTE | 2025-05-27 13:02 | ESPR_ITS ---
Documentation for date of: 05/27/25 Subjective Subjective Interval history: NAEO. Abdominal pain is improving, 6 out of 10 today. It gets worse with sitting and lying on her left side. Nausea is resolved and patient has not vomitted. Patient is able to pass gas but has not had a bowel movement. Denies dysuria, urinary frequency, or urgency. Chest pain from night before seems to be coming from her stomach. Exam Vital Signs Temp Pulse Resp BP Pulse Ox O2 Del Method 97.6 F 99 18 136/85 H 93 L Room Air 05/27/25 08:00 05/27/25 08:00 05/27/25 08:00 05/27/25 08:00 05/27/25 08:00 05/27/25 08:00 Narrative Exam General: Alert and oriented x3, No apparent distress. Skin: Intact, Warm, no rashes. HEENT: Normocephalic, Atraumatic. Normal neck range of motion, Supple. Trachea midline. Respiratory: Lungs are clear to auscultation, Breath sounds are equal bilaterally with equal chest expansion. Cardiovascular: RRR, normal S1, S2, No murmurs. Distal pulses 2+ Musculoskeletal: No swelling, moving all 4 extremities with FROM Abdomen: No erythema, bruising, or lesions. A transverse scarring from C- section surgery in hypogastric area. Abdomen is soft, tender to palpation. No rebound or guarding. Normotensive bowel sounds x4. Neurologic: Alert, Oriented, No focal deficits. Moving all 4 extremities spontaneously Psych: Thoughts linear and responses appropriate. Objective Labs 05/28/25 05:44 05/28/25 05:44 Labs: Laboratory Results - last 24 hr 05/27/25 05:05 WBC 10.6 RBC 4.36 Hgb 15.0 Hct 43.4 MCV 100 MCH 34.4 MCHC 34.6 RDW Std Deviation 51.4 H Plt Count 166 Neut % (Auto) 80 Lymph % (Auto) 11 [place] % (Auto) 8 Eos % (Auto) 1 Baso % (Auto) 0 Neut # (Auto) 8.5 H Lymph # (Auto) 1.2 [place] # (Auto) 0.8 Eos # (Auto) 0.1 Baso # (Auto) 0.0 Immature Gran # (Auto) 0.04 H Absolute Nucleated RBC 0.00 Immature Gran % 0 Nucleated RBC % 0 Sodium 137 Potassium 4.4 D Chloride 103 Carbon Dioxide 25.0 Anion Gap 9 BUN < 5 L Creatinine 0.6 Estim Creat Clear Calc 144.3 eGFR > 60 BUN/Creatinine Ratio 8 L Glucose 94 Calculated Osmolality 271 L Calcium 8.4 Corrected Calcium 8.9 Phosphorus 1.6 L Magnesium 2.0 Total Bilirubin 1.3 H AST 47 H ALT 67 H Alkaline Phosphatase 113 D Total Protein 5.9 Albumin 3.4 L D Globulin 2.5 Albumin/Globulin Ratio 1.4 Quality Measures Quality Measures none Assessment & Plan Assessment Current Active Medications: Generic Name Dose Route Start Last Admin Trade Name Freq PRN Reason Stop Dose Admin Folic Acid 1 mg 05/26/25 09:00 05/27/25 08:27 Folic Acid 1 Mg Tablet PO 05/31/25 08:59 1 mg BID LATRICE Administration Sodium Phosphate 22.5 mmol/ 507.5 mls @ 82.778 mls/hr 05/27/25 07:35 05/27/25 08:27 Sodium Chloride IV 05/27/25 13:42 82.778 mls/hr X1 ONE Administration Lactated Ringer's 1,000 mls @ 75 mls/hr 05/27/25 07:38 05/27/25 08:28 Lactated Ringers IV 06/26/25 07:36 75 mls/hr .[id number] LATRICE Administration Lidocaine 1 patch 05/27/25 12:30 Lidocaine 5% 1 Patch TOP 06/26/25 12:29 UD PRN PAIN Lorazepam 0.5 mg 05/26/25 07:57 05/26/25 20:26 Lorazepam 2 Mg/Ml Vial IV 05/31/25 07:56 0.5 mg Q2HR PRN Administration CIWA SCORE 8-13 Lorazepam 1 mg 05/26/25 07:57 Lorazepam 2 Mg/Ml Vial IV 05/31/25 07:56 Q2HR PRN CIWA SCORE 14-19 Lorazepam 2 mg 05/26/25 07:57 Lorazepam 2 Mg/Ml Vial IV 05/31/25 07:56 Q2HR PRN CIWA SCORE 20-25 Lorazepam 2 mg 05/26/25 07:57 Lorazepam 2 Mg/Ml Vial IVP X1 PRN Breakthrough Agitation Morphine Sulfate 2 mg 05/25/25 17:50 05/27/25 12:11 Morphine Sulf Inj 10 Mg/Ml Vial IVP 05/30/25 17:49 2 mg Q4HR PRN Administration PAIN SCALE 7-10 (Severe Ondansetron HCl 4 mg 05/25/25 15:30 05/26/25 11:25 Ondansetron Inj 2 Mg/Ml Inj 2 Ml IVP 06/24/25 15:29 4 mg Q6HR PRN Administration NAUSEA OR VOMITING Protocol Pantoprazole Sodium 40 mg 05/26/25 09:00 05/27/25 08:27 Pantoprazole Inj 40 Mg Vial IVP 06/25/25 08:59 40 mg QDAY LATRICE Administration Thiamine HCl 100 mg 05/26/25 09:00 05/27/25 08:27 Thiamine 100 Mg Tablet PO 05/31/25 08:59 100 mg BID LATRICE Administration Plan Plan In summary, Shekhar Ojeda is a 45-year-old female with past medical history of alcohol abuse disorder, osteoarthritis, degenerative disc disease, and cholecystectomy who presented to the ED with signs and symptoms concerning for acute pancreatitis. #Acute alcohol-induced pancreatitis Ddx gallstone pancreatitis, hypertriglyceridemia, scorpion bite. Lipase 272, triglycerides 263 CTAP: Enlarged common hepatic duct, suspicion for pancreatitis HgA1c 4.9; TSH .72 Plan: ?Follow-up MRCP ? LR 75 mL/h +82ml/h of NS from NaPO4 infusion ? clear liquid diet beginning with this dinner; antiemetics on board ? Analgesics IV morphine 4 mg as needed injection ? CBC, CMP daily AM draw #Alcohol withdrawal (possibility, to watch out for) Patient drinks a pint of 40% alcohol daily [facility] 7 (05/27) Plan: ?Obtain daily labs for magnesium and phosphate, replete as necessary ? Vitamin supplementation (thiamine, pyridoxine) ? Consider [facility] protocol #Transaminitis On admission AST 392, 47, ALT 158, 67, alkaline phosphatase 143, 113 (05/27) AST: ALT >2 indicative of alcohol induced liver injury LFT's downtrending Plan: trend LFT Health maintenance: Diet: clear liquid diet GI prophylaxis: Protonix CODE STATUS routine Case was discussed with attending physician, Dr. Guaman, and senior resident Chalo. Gee Foley, DO PGY I Attending Provider Attestation/Addendum I have examined the patient, reviewed labs and imaging findings, discussed the case with the resident(s), and reviewed entered orders. I agree with the plan of care as outlined in this note, with these additional summaries/recommendations: Patient seen at bedside. No acute overnight events. Today patient reports improvement in abdominal pain although now endorsing severe back pain. Patient was started on clear liquid diet yesterday but did not tolerate and patient made n.p.o. again. Resume Clear liquid diet to see if patient cant tolerate. Continue pain management and IV fluids for acute pancreatitis. Continue CIWA for alcohol withdrawal although no evidence of withdrawal at this time although patient is high risk. Patient updated on plan and in agreement. All questions answered to satisfaction. Please see residents note for additional details and management. Dr. Rowena MD
[2025-05-27] MEDS: LIDOCAINE 5% 1 PATCH TOP (13:08)
--- NOTE | 2025-05-27 15:28 | PC.SS ---
Patient is a 45YO White female; reason for visit: PANCREATITIS. Role and purpose of today's contact was explained. Initial assessment completed at bedside. Patient confirmed her demographic information. Patient stated her significant other, Julissa Ojeda [phone] is her primary medical surrogate decisionmaker. She explained she is independent with ADL completion and ambulation as well. Pharmacy: [facility]- Jac[facility]. PCP: GÓMEZ last appt. was 05/25/25. Discharge plan: Home, SO to provide transportation. Next of kin: SO, Julissa Ojeda [phone].
[2025-05-27] MEDS: LORazepam 2 MG/ML VIAL 0.5 MG IV ×2 (16:24→23:00)
[2025-05-28] VITALS: BP 134/87; PULSE 96; RESP 16; TEMP 36.8; O2SAT 95
[2025-05-28 04:00] VITALS: BP 118/78; PULSE 87; PULSE 90; RESP 16; TEMP 36.6; O2SAT 95
[2025-05-28 06:38] LABS: Basophils # (Auto) 0.0 Thou/mm3 (0.0-0.2); Basophils % (Auto) 0 % (0-2.5); Eosinophils # (Auto) 0.2 Thou/mm3 (0.0-0.5); Eosinophils % (Auto) 2 % (0-10); Hematocrit 38.9 % (36.0-46.0); Hemoglobin 13.4 g/dL (12.0-16.0); Immature Granulocytes Auto 0.02 Thou/mm3 (0.00-0.00); Lymphocytes # (Auto) 1.1 Thou/mm3 (1.0-4.8); Lymphocytes % (Auto) 11 % (10-50); Mean Corpuscular HGB Conc 34.4 g/dl (31.0-37.0); Mean Corpuscular Hemoglobin 34.2 pg (25.0-35.0); Mean Corpuscular Volume 99 fL (80-100); Monocytes # (Auto) 1.0 Thou/mm3 (0.0-0.8); Monocytes % (Auto) 10 % (0-12); Neutrophils # (Auto) 7.5 Thou/mm3 (1.8-7.7); Neutrophils % (Auto) 77 % (37-80); Nucleated Red Blood Cell # 0.00 Thou/mm3 (0.00-0.00); Nucleated Red Blood Cell % 0 /100 WBC (0); Platelet Count 168 Thou/mm3 (140-440); RDW Standard Deviation 50.6 fL (36.4-46.3); Red Blood Count 3.92 Miln/mm3 (4.00-5.20); White Blood Count 9.7 Thou/mm3 (3.6-11.0)
[2025-05-28 06:45] LABS: Alanine Aminotransferase 35 U/L (10-49); Albumin, Serum 3.3 gm/dL (3.5-5.0); Albumin/Globulin Ratio 1.4 (1.2-2.2); Alkaline Phosphatase 94 U/L (46-116); Anion Gap 8 (7-16); Aspartate Amino Transferase 18 U/L (0-34); BUN/Creatinine Ratio 10 Ratio (12-20); Bilirubin,Total 1.0 mg/dL (0.3-1.2); Blood Urea Nitrogen < 5 mg/dL (9-23); Calcium 8.2 mg/dL (8.3-10.6); Calcium (Corrected) 8.8 mg/dL (8.5-10.1); Carbon Dioxide 23.7 mMol/L (20.0-31.0); Chloride 106 mMol/L (98-107); Creatinine (Component) 0.5 mg/dL (0.6-1.3); Estimated Creatinine Clearance 173.2 mL/min (>60); Globulin 2.3 gm/dL (2.3-3.5); Glucose 81 mg/dL (74-106); Magnesium 1.6 mg/dL (1.6-2.6); Osmolality,Calculated 271 (275-295); Phosphorous 2.2 mg/dL (2.4-5.1); Potassium 3.6 mMol/L (3.4-5.1); Sodium 138 mMol/L (136-145); Total Protein 5.6 gm/dL (5.7-8.2); eGFR > 60 See Note
[2025-05-28 08:00] VITALS: BP 128/92; PULSE 106; PULSE 92; RESP 21; TEMP 36.7; O2SAT 95
[2025-05-28] MEDS: THIAMINE 100 MG TABLET PO (08:25)
[2025-05-28] MEDS: FOLIC ACID 1 MG TABLET PO (08:25)
[2025-05-28] MEDS: SOD PHOS ADDITIVE 22.5 MMOL in SODIUM CHLORIDE 0.9% 500 ML 500 ML 82.778 MMOL IV (10:06)
[2025-05-28] MEDS: LORazepam 2 MG/ML VIAL 0.5 MG IV (11:22)
[2025-05-28 12:00] VITALS: BP 129/79; PULSE 91; PULSE 97; RESP 18; TEMP 37; O2SAT 94
--- NOTE | 2025-05-28 14:42 | PD.RESPRO ---
Documentation for date of: 05/28/25 Exam Vital Signs Temp Pulse Resp BP Pulse Ox O2 Del Method 97.9 F 97 16 118/78 95 Room Air 05/28/25 04:00 05/28/25 12:00 05/28/25 04:00 05/28/25 04:00 05/28/25 04:00 05/28/25 04:00 Objective Labs 05/28/25 05:44 05/28/25 05:44 Labs: Laboratory Results - last 24 hr 05/28/25 05:44 WBC 9.7 RBC 3.92 L Hgb 13.4 Hct 38.9 MCV 99 MCH 34.2 MCHC 34.4 RDW Std Deviation 50.6 H Plt Count 168 Neut % (Auto) 77 Lymph % (Auto) 11 [place] % (Auto) 10 Eos % (Auto) 2 Baso % (Auto) 0 Neut # (Auto) 7.5 Lymph # (Auto) 1.1 [place] # (Auto) 1.0 H Eos # (Auto) 0.2 Baso # (Auto) 0.0 Immature Gran # (Auto) 0.02 H Absolute Nucleated RBC 0.00 Immature Gran % 0 Nucleated RBC % 0 Sodium 138 Potassium 3.6 D Chloride 106 Carbon Dioxide 23.7 Anion Gap 8 BUN < 5 L Creatinine 0.5 L Estim Creat Clear Calc 173.2 eGFR > 60 BUN/Creatinine Ratio 10 L Glucose 81 Calculated Osmolality 271 L Calcium 8.2 L Corrected Calcium 8.8 Phosphorus 2.2 L Magnesium 1.6 Total Bilirubin 1.0 AST 18 ALT 35 Alkaline Phosphatase 94 Total Protein 5.6 L Albumin 3.3 L Globulin 2.3 Albumin/Globulin Ratio 1.4 Blood Type O Positive Antibody Screen NEGATIVE Blood Bank Wristband ID Yes Quality Measures Quality Measures none Assessment & Plan Assessment Current Active Medications: Generic Name Dose Route Start Last Admin Trade Name Freq PRN Reason Stop Dose Admin Acetaminophen 325 mg 05/28/25 08:32 Acetaminophen Supp 325 Mg Supp [place] 06/27/25 08:31 Q4HR PRN Pain 1-4 Or Fever > 101 Hydrocodone Bitart/Acetaminophen 1 tab 05/28/25 08:34 05/28/25 09:48 Hydrocodone/Apap 10/325 Tab PO 06/02/25 08:33 1 tab Q4HR PRN Administration PAIN SCALE 5-7 (Moderate Folic Acid 1 mg 05/26/25 09:00 05/28/25 08:25 Folic Acid 1 Mg Tablet PO 05/31/25 08:59 1 mg BID LATRICE Administration Lactated Ringer's 1,000 mls @ 75 mls/hr 05/27/25 07:38 05/27/25 23:09 Lactated Ringers IV 06/26/25 07:36 75 mls/hr .[id number] LATRICE Administration Lidocaine 1 patch 05/28/25 09:37 Lidocaine 5% 1 Patch TOP 06/26/25 12:29 UD PRN LOCALIZED PAIN Lorazepam 0.5 mg 05/26/25 07:57 05/28/25 11:22 Lorazepam 2 Mg/Ml Vial IV 05/31/25 07:56 0.5 mg Q2HR PRN Administration CIWA SCORE 8-13 Lorazepam 1 mg 05/26/25 07:57 Lorazepam 2 Mg/Ml Vial IV 05/31/25 07:56 Q2HR PRN CIWA SCORE 14-19 Lorazepam 2 mg 05/26/25 07:57 Lorazepam 2 Mg/Ml Vial IV 05/31/25 07:56 Q2HR PRN CIWA SCORE 20-25 Lorazepam 2 mg 05/26/25 07:57 Lorazepam 2 Mg/Ml Vial IVP X1 PRN Breakthrough Agitation Morphine Sulfate 2 mg 05/28/25 08:39 Morphine Sulf Inj 10 Mg/Ml Vial IVP 05/30/25 17:49 Q4HR PRN BREAKTHROUGH PAIN 7-10 Ondansetron HCl 4 mg 05/25/25 15:30 05/26/25 11:25 Ondansetron Inj 2 Mg/Ml Inj 2 Ml IVP 06/24/25 15:29 4 mg Q6HR PRN Administration NAUSEA OR VOMITING Protocol Pantoprazole Sodium 40 mg 05/26/25 09:00 05/28/25 08:25 Pantoprazole Inj 40 Mg Vial IVP 06/25/25 08:59 40 mg QDAY LATRICE Administration Thiamine HCl 100 mg 05/26/25 09:00 05/28/25 08:25 Thiamine 100 Mg Tablet PO 05/31/25 08:59 100 mg BID LATRICE Administration
--- NOTE | 2025-05-28 17:46 | ESDS_ITS ---
<Statement entered by Dyan Nayak MD - 05/28/25 18:23> This is a 45-year-old female with PMHx of alcohol use disorder, cholecystectomy, and osteoarthritis admitted for acute pancreatitis based on imaging, elevated lipase, and pain characteristic. She was continued on IV fluids and pain control. Her symptoms have resolved and was tolerating oral intake without nausea or vomiting or pain, having regular bowel movements. She had mild transaminitis likely in settings of pancreatitis and dehydration which have resolved since admission. Recommendations include follow-up with PCP on discharge, THIAMINE and FOLIC ACID supplements daily, avoiding alcohol use, return to emergency room if symptoms persist worsening or new symptoms develop. Case was discussed with attending physician. Dyan Nayak DO PGY II This document was transcribed using voice recognition technology. Minor inaccuracies may be present. Planned Discharge Date 05/28/25 DS: Providers Provider Date of admission: 05/25/25 14:16 Primary care physician: Ubaldo Sweet MD Admitting Provider: Jacky Guaman MD Attending Provider on Admission: Jacky Guaman MD Attending Provider on DC: Jacky Guaman MD Discharging Provider: Jacky Guaman MD DS: Diagnosis Problem List Completed Was Problem List Reviewed/Reconciled?: Yes Hospital Course Hospital Course Hospital course: Angeles Ojeda is a 45-year-old female with past medical history of alcohol abuse, cholecystectomy, osteoarthritis of hips knees and wrists, degenerative disc disease who presented to the ED on 05/25/2025 with worsening epigastric pain since midnight. Patient admitted to nausea and repeated vomiting. In the ED, lipase 272 and CTAP demonstrated edema around the pancreatic head. Patient was subsequently admitted for treatment of acute pancreatitis as she met 3/3 of criteria. Over the course of her hospital stay, her initial transaminitis, abdominal pain, nausea vomiting improved day by day. At the point of discharge, AST 18, ALT 35, ALP 94, nausea/vomiting/abdominal pain have resolved. Patient does not exhibit signs and symptoms of withdrawal. Patient is medically stable and safe to return to her previous state of living. Imaging: CTAP: Enlarged common hepatic duct, suspicion for pancreatitis CXR: Normal heart size. The lungs are clear. The osseous structures are intact. Echocardiogram: Normal LV size and function. Mild LVH. Estimated EF of 55 to 60%. Normal diastolic function. Normal RV size and function. Mildly elevated RVSP 35 to 40 mmHg. Trace MR. Mild TR. no pericardial effusion EKG: sinus rhythym. Incomplete Rt bundle branch block. Admission Diagnoses: #Alcohol induced pancreatitis #Transaminitis Discharge Instructions: * Follow-up with PCP within 1-2 weeks of discharge. * Continue taking THIAMINE 100 mg twice daily (NEW). * Continue taking FOLIC ACID 1 mg twice daily (NEW). * Continue taking medications as prescribed below. * Return to Emergency Room if symptoms persist, worsen, or new symptoms develop. Case was discussed with attending physician, Dr. Guaman, and senior resident Dr Nayak. Gee Foley, DO PGY I Time Spent with Patient Time attestation: Total time spent providing and/or coordinating discharge services: Time spent: Greater than 30 minutes Exam Vital Signs Temp Pulse Resp BP Pulse Ox O2 Del Method 98.6 F 91 18 129/79 94 L Room Air 05/28/25 12:05/28/25 12:05/28/25 12:05/28/25 12:05/28/25 12:05/28/25 12:00 Narrative Exam General: Alert and oriented x3, No apparent distress. Skin: Intact, Warm, no rashes. HEENT: Normocephalic, Atraumatic. Normal neck range of motion, Supple. Trachea midline. Respiratory: Lungs are clear to auscultation, Breath sounds are equal bilaterally with equal chest expansion. Cardiovascular: RRR, normal S1, S2, No murmurs. Distal pulses 2+ Musculoskeletal: No swelling, moving all 4 extremities with FROM Abdomen: No erythema, bruising, or lesions. A transverse scarring from C- section surgery in hypogastric area. Abdomen is soft, mildly tender to palpation. No rebound or guarding. Normotensive bowel sounds x4. Neurologic: Alert, Oriented, No focal deficits. Moving all 4 extremities spontaneously Psych: Thoughts linear and responses appropriate. Discharge Plan Plan Patient Disposition: HOME (Self Care) Patient condition on transfer: Stable Care Plan Goals: * Follow-up with PCP within 1-2 weeks of discharge. * Continue taking THIAMINE 100 mg twice daily (NEW). * Continue taking FOLIC ACID 1 mg twice daily (NEW). * Continue taking medications as prescribed below. * Return to Emergency Room if symptoms persist, worsen, or new symptoms develop. Prescriptions/Referrals Prescriptions/Med Rec: New thiamine mononitrate (vit B1) 100 mg Tablet 100 mg PO BID Qty: 60 0RF folic acid 1 mg Tablet 1 mg PO BID Qty: 30 0RF Continued ibuprofen [IBU] 800 mg tablet 800 mg PO DAILY PRN (Reason: pain) omeprazole 20 mg capsule,delayed release(DR/EC) 20 mg PO QDAY PRN (Reason: abdominal pain) Referrals: Ubaldo Sweet MD [Primary Care Provider] - Patient/Caregiver Discharge Instructions Education Materials: Understanding Pancreatitis, Alcohol Addiction, Pancreatitis Acute Dc Print Language: B[place] Stand Alone Forms: [employer] Award Info., Patient Portal Info Letter, Work/Release Restrictions Discharge Order Discharge Orders: Discharge (Routine); Ordered 05/28/25 Ordered By: Dyan Nayak Quality Discharge Quality Measures VTE prophylaxis MD Attestestation MD Attestation I have examined the patient, reviewed labs and imaging findings, discussed the case with the resident(s), and reviewed entered orders. I agree with the plan of care as outlined in this note. Time Spent: [address] Rowena MD
== END 2025-05-28 15:37 | disposition home or self-care (01) | DRG 439 ==
LOC: SERX 13:09 → SERHOLD 14:47 → S3SX 17:00
PROVIDERS: Physician Assistant; Admitting Provider Student in an Organized Health Care Education/Training Program; Emergency Provider Emergency Medicine; PCP Family Medicine; Visit Provider Student in an Organized Health Care Education/Training Program
DX: K85.20 Alcohol induced acute pancreatitis without necrosis or infection (principal); F10.139 Alcohol abuse with withdrawal, unspecified; K70.9 Alcoholic liver disease, unspecified; Y90.0 Blood alcohol level of less than 20 mg/100 ml; E86.0 Dehydration; M16.0 Bilateral primary osteoarthritis of hip; F17.200 Nicotine dependence, unspecified, uncomplicated; Z90.49 Acquired absence of other specified parts of digestive tract; Z63.4 Disappearance and death of family member; Z88.8 Allergy status to other drugs, medicaments and biological substances
CPT/HCPCS: 36415; 71045; 74177; 80053; 80061; 80307; 80320; 81001; 81025; 83036; 83690; 83735; 84100; 84443; 84478; 84484; 84703; 85025; 86850; 86900; 86901; 93005; 93225; 93306; 96361; 96374; 96375; 96376; A4649; J2060; J2270; J2405; J2470; J3475; J3480; J3490; J7030; J7050; J7120; J7999; Q9967; A9270; G0480